=== PATIENT | female | born 1940 | race Caucasian/White ===

== ENCOUNTER → 2017-01-12 | Day surgery (SDC) | payer OTHER ==
[~2017-01-12] VITALS: Ht 160 cm; Wt 78.9 kg
[~2017-01-12] MED LIST: ASPIRIN EC81 M1 PO; ATORVASTATIN CA10 M1 PO; COREG12.5 M1 PO; GEMFIBROZIL600 M1 PO; HYDROCHLOROTH12.5 M3 PO; LEVOTHYROXINE150 MCG PO
--- NOTE | 2017-01-17 16:06 | Operative Report ---
Operative/Inv Procedure Report Surgery Date: 01/12/17 Name of Procedure: Right knee arthroscopic partial medial and lateral meniscectomy Pre-Operative Diagnosis: 1 right knee osteoarthritis #2 right knee medial meniscal tear #3 right knee lateral meniscal tear Post-Operative Diagnosis: Same Estimated Blood Loss: scant Surgeon/Chimney Supervisor Brick: JESSICA LEO,RUBY Anesthesia: laryngeal mask airway Specimens: None Tourniquet: None used Complications: None Condition: Stable Operative Indication: Patient is a 76-year-old woman who has a history of mild knee osteoarthritis but developed worsening symptoms and mechanical symptoms. Treatment for her osteoarthritis including medications and injections. Unfortunately she had continued faculties with mechanical symptoms and therefore further imaging was ordered which confirmed degenerative medial lateral meniscal tears which were unstable. Due to ongoing symptoms and lack of long-term improvement with conservative measures, she wished to proceed with arthroscopic management. Risks benefits and expectations of surgical procedure were discussed which included but were not limited to persistent knee pain, need for subsequent surgery, advancement of her osteoarthritis, anesthesia risks Operative/Procedure Note Note: Patient was brought to the operating room and transferred to the operating table. Once under appropriate anesthesia the right lower extremity was prepped and draped in standard fashion. Preoperative IV antibiotics were given prophylactically. A standard infrapatellar lateral portal site was established scope was inserted. The patellofemoral compartment was visualized. Some mild degenerative changes of the undersurface of the patella within the median ridge was noted. No unstable articular cartilage was apparent. I entered the medial compartment in doing so there was no evidence of pathologic plica. I evaluated the medial meniscus. There was a degenerative type complex tear of the junction between the body and the posterior horn. This would be confirmed with establishing a medial infrapatellar portal site under direct vision. I probed the meniscus and confirm the presence of the complex type tear. I used the straight biters followed by shaver to complete the partial medial meniscectomy. I also chondroplasty of the medial femoral condyle due to the degenerative articular cartilage. I then entered the notch. The ACL was found to be synovitic but intact. I placed leg into a figure 4 position and was able to evaluate the lateral meniscus again there was a significant degenerative type tear/complex type tear of the junction between the anterior horn and mid body. I used the biters followed by the shaver to complete the partial lateral meniscectomy. The remainder of the meniscus was intact. So some mild degenerative changes of the lateral compartment is well. I entered the lateral gutter. No evidence of loose bodies. I went up to the patellofemoral compartment and copiously irrigated the knee. All fluid and instruments were removed from the knee and portal sites were closed with interrupted nylon sutures. Appropriate dressings were applied and patient was awakened and taken to recovery room in good condition. No intraoperative complications. Blood loss was minimal Discharge Disposition: PACU
== END ==
LOC: STS 03:20
DX: M23.221 Derangement of posterior horn of medial meniscus due to old tear or injury, right knee (principal); M23.200 Derangement of unspecified lateral meniscus due to old tear or injury, right knee; M17.11 Unilateral primary osteoarthritis, right knee; I10 Essential (primary) hypertension; E03.9 Hypothyroidism, unspecified
CPT/HCPCS: J1100; J2250; J2405